=== PATIENT | female | born 1950 | race Caucasian/White ===

== ENCOUNTER 2023-12-08 07:04 | Inpatient (IN) | payer MEDICARE, BC ==
[~2023-12-08] VITALS: Ht 157.5 cm; Wt 107.1 kg
[2023-12-08] MEDS ORDERED: Mag/Al Hydrox/Simeth Susp 30 ML CUP PO ONE (07:45)
[2023-12-08] MEDS ORDERED: Iohexol 300 - 100 ML VIAL IV ONE (07:56)
[2023-12-08] MEDS ORDERED: NS 100 ML IV SCH (07:57)
[2023-12-08] MEDS ORDERED: Oxymetazoline 0.05% Nasal Spray 30 ML BOTTLE NS ONE (09:00)
[2023-12-08] MEDS ORDERED: dexAMETHasone 10 MG/ML VIAL IV ONE (10:15)
[2023-12-08] MEDS ORDERED: fentaNYL 50 MCG/ML 2 ML VIAL IV ONE (10:45)
[2023-12-08] MEDS ORDERED: CADUET 10 MG-801 TAB PO (11:09)
[2023-12-08] MEDS ORDERED: DIOVAN 80MG80 MG PO (11:10)
[2023-12-08] MEDS ORDERED: PROTONIX 40MG T40 MG PO (11:10)
[2023-12-08] MEDS ORDERED: [UNRECOGNIZED DRUG - REMARK] IH SCH (11:11)
[2023-12-08] MEDS ORDERED: SYNTHROID0.1 MG/TAB PO (11:12)
[2023-12-08] MEDS ORDERED: DETROL LA 2 MG2 MG PO (11:12)
[2023-12-08] MEDS ORDERED: [UNRECOGNIZED DRUG - OTHER] SQ (11:12)
[2023-12-08] MEDS ORDERED: *Potassium Replacement Protocol MC SCH (11:15)
[2023-12-08] MEDS ORDERED: SYNTHROID0.05 MG/TA PO (11:40)
[2023-12-08 13:00] VITALS: BP_SYST 120
[2023-12-08 13:29] VITALS: BP 112/32; PULSE 65; TEMP 98.1
--- NOTE | 2023-12-08 13:29 | NUR ---
Reviewed initial assessment and intake agree with DULCE Woo's documentation.
--- NOTE | 2023-12-08 13:30 | NUR ---
SHIFT ASSESSMENT COMPLETED AT THIS TIME. PT A&OX4. PT DENIES PAIN AND NAUSEA BUT REPORTS SOB. PT IS ON 2L/NC. VSS- SEE FLOWSHEET. PT RESTING IN BED. INT C,D,I TO RIGHT HAND. COVID PRECAUTIONS IN PLACE. PT LUNCH ORDERED. CALLL LIGHT WITHIN REACH. NO FURTHER NEEDS AT THIS TIME.
[2023-12-08] MEDS ORDERED: Albuterol 90 MCG/PUFF 8 GM MDI IH SCH (14:00)
[2023-12-08] MEDS ORDERED: amLODIPine 10 MG TAB PO SCH (15:59)
[2023-12-08] MEDS ORDERED: NS 1,000 ML IV SCH (16:00)
[2023-12-08 16:40] VITALS: BP 115/62; PULSE 74; TEMP 97.4
[2023-12-08 16:50] LABS: HEMATOCRIT 43.1 % (37.0-47.0); HEMOGLOBIN 14.9 g/dl (12.5-16.0); MEAN CELL VOLUME 92 fl (80.0-100.0); MEAN CORPUSCULAR HEMOGLOBIN 32 pg (27-31); MEAN CORPUSCULAR HGB CONC 35 g/dl (33.0-37.0); PLATELET COUNT 191 K/mm3 (130-400); RED BLOOD COUNT 4.69 M/mm3 (4.10-5.30); REDCELL DISTRIBUTION WIDTH-CV 13.3 % (11.5-14.5)
[2023-12-08 17:05] VITALS: BP_SYST 115
[2023-12-08 17:14] LABS: CALCIUM 9.3 mg/dL (8.4-10.2); CREATININE, serum 0.85 mg/dL (0.57-1.11); POTASSIUM 4.5 mEq/L (3.5-4.5)
[2023-12-08 20:15] VITALS: BP 118/71; PULSE 80; TEMP 98.3
[2023-12-08 20:30] VITALS: BP_SYST 118
--- NOTE | 2023-12-08 21:00 | NUR ---
UPON SHIFT ASSESSMENT, PAOLA WAS AWAKE IN BED AND AX0 X4. VS ARE CURRENTLY WITHIN NORMAL LIMITS AND WOB IS ALSO WNL. TELE IS NS AT 66 BPM. 75ML/HR NS RUNNING IN 80 RT HAND IV. PATIENT INDEPENDENT AND UP TO RESTROOM URINATING. PATIENT REQUESTED NOT TO BE DISTURBED THROUGHOUT THE NIGHT. EDUCATION PROVIDED THAT VITAL SIGNS ARE NECESSARY FOR COVID PATIENTS ON 02 THERAPY. PATIENT AGREEABLE TO Q4HR VITALS. CALL LIGHT WITHIN REACH.
[2023-12-09] VITALS (14 sets, daily range): BP systolic 92–133; BP diastolic 51–83; PULSE 60–83; TEMP 97.6–98.5
[2023-12-09 06:08] LABS: BASO % 0.1 % (0.0-2.0); GRAN # 5.9 K/mm3 (1.4-6.5); GRAN % 73.8 % (42.2-75.2); HEMATOCRIT 39.2 % (37.0-47.0); HEMOGLOBIN 13.3 g/dl (12.5-16.0); LYMPH # 1.3 K/mm3 (1.2-3.4); LYMPH % 16.9 % (20.0-51.0); MEAN CELL VOLUME 94 fl (80.0-100.0); MEAN CORPUSCULAR HEMOGLOBIN 32 pg (27-31); MEAN CORPUSCULAR HGB CONC 34 g/dl (33.0-37.0); MEAN PLATELET VOLUME 10.1 fl (7.4-10.4); MONO # 0.7 K/mm3 (0.1-0.6); MONO % 8.7 % (1.7-9.3); PLATELET COUNT 190 K/mm3 (130-400); RED BLOOD COUNT 4.17 M/mm3 (4.10-5.30); REDCELL DISTRIBUTION WIDTH-CV 13.2 % (11.5-14.5)
[2023-12-09 06:22] LABS: ALBUMIN 2.9 g/dL (3.4-4.8); CALCIUM 8.9 mg/dL (8.4-10.2); CREATININE, serum 0.73 mg/dL (0.57-1.11); PHOSPHOROUS 3.4 mg/dL (2.3-4.7); POTASSIUM 4.2 mEq/L (3.5-4.5)
--- NOTE | 2023-12-09 08:20 | NUR ---
PATIENT RESTING IN BED UPON ENTERING ROOM. MORNING MEDICATIONS ADMINISTERED PER eMAR. SHIFT ASSESSMENT COMPLETED. PATIENT REPORTS MILD PAIN TO HER UPPER ABDOMEN "UNDER HER BREASTS." SHE REPORTS THAT SHE HAS BEEN ABLE TO EAT, DRINK, AND USE THE RESTROOM NORMAL. PATIENT IS ON 1L O2 VIA NC. IVF INFUSING. UPDATED PATIENT ON PLAN OF CARE. CALL LIGHT WITHIN REACH. WILL CONTINUE TO MONITOR.
[2023-12-09] MEDS ORDERED: dexAMETHasone 4 MG TAB PO SCH (09:00)
[2023-12-09] MEDS ORDERED: Fluticasone Furoate 100 MCG/Inhalation INHALER IH SCH (09:00)
--- NOTE | 2023-12-09 11:09 | NUR ---
SW attempted to meet with patient to complete initial assessment for discharge planning. Patient is Covid +, SW called patient's phone to complete assessment due to patient being in isolation. Patient's Gab ([phone]) answered phone and verified information. Patient and live in [place], [place], patient sees Dr. Joseluis Wing as her PCP and they use [facility] in [place] without difficulty. Patient does not require any DME at home. She has not completed a DPOA at this time. Patient plans to return home at discharge. Discharge plan: Home
[2023-12-09] MEDS ORDERED: guaiFENesin ER 600 MG **** subs to guaiFENesin 200 MG PO SCH (13:36)
[2023-12-09] MEDS ORDERED: Furosemide 20 MG TAB PO ONE (13:45)
--- NOTE | 2023-12-09 13:56 | NUR ---
Data: Patient accepted prayer offered during Perinatal Coordinator rounds. Patient is on precautions. Assessment: Patient acceptive of prayer. Plan of Care: Perinatal Coordinator prayed for Patient outside room. Chaplains will remain available as needed/requested while Patient is admitted to this hospital.
[2023-12-09] MEDS ORDERED: Benzonatate 100 MG CAP PO SCH ×2 (14:00→21:00)
[2023-12-09] MEDS ORDERED: guaiFENesin 200 MG TAB PO SCH (14:00)
--- NOTE | 2023-12-09 20:00 | NUR ---
[facility]ED TO [facility]. PATIENT REQUESTING HALLS COUGH DROPS FOR THROAT IRRITATION. PATIENT ALSO EXHIBITING YELLOW THICK SPUTUM. TORB FOR LOZENGES AND SPUTUM CULTURE GIVEN.
[2023-12-09] MEDS ORDERED: Menthol Cough/Sore Throat LOZENGE MM PRN (20:15)
--- NOTE | 2023-12-09 20:30 | NUR ---
UPON SHIFT ASSESSMENT, APRIL WAS AWAKE IN BED A&O X 4 WITH 1.5 NC O2. PATIENT DENIES SOA OR CHEST PAIN. YELLOW PHLEGM FILLED TISSUES NOTED BEDSIDE. PATIENT HAS FINE CRACKLES IN UPPER LOBES THAT CLEAR WITH COUGH. VS ARE WNL AND TELE IS CURRENTLY NS. PATIENT STATES NO NEEDS AT THIS TIME. CALL LIGHT WITHIN REACH.
[2023-12-10] VITALS (7 sets, daily range): BP systolic 98–107; BP diastolic 58–66; PULSE 58–71; TEMP 97.7–98.2
--- NOTE | 2023-12-10 01:45 | NUR ---
CALLED TO PATIENT'S ROOM. PAOLA STATES O2 NC HAS BEEN LEAKING ALL DAY AND IT HAS BEEN CHECKED SEVERAL TIMES BY STAFF. THIS NURSE INSPECTED CONNECTION SITE AN NO CONNECTOR DEVICE NOTED. CONNECTION INSTALLED AND O2 FLOW PATENT WITH NO LEAKING. REASSESSED O2 SAT AND PATIENT AT 96%, REDUCED 02 TO 0.5L.
[2023-12-10 06:54] LABS: BASO % 0.2 % (0.0-2.0); GRAN # 10.4 K/mm3 (1.4-6.5); GRAN % 78.3 % (42.2-75.2); HEMATOCRIT 39.5 % (37.0-47.0); HEMOGLOBIN 13.4 g/dl (12.5-16.0); LYMPH % 14.9 % (20.0-51.0); MEAN CELL VOLUME 94 fl (80.0-100.0); MEAN CORPUSCULAR HEMOGLOBIN 32 pg (27-31); MEAN CORPUSCULAR HGB CONC 34 g/dl (33.0-37.0); MEAN PLATELET VOLUME 10.3 fl (7.4-10.4); MONO # 0.8 K/mm3 (0.1-0.6); MONO % 5.7 % (1.7-9.3); PLATELET COUNT 212 K/mm3 (130-400); RED BLOOD COUNT 4.21 M/mm3 (4.10-5.30); REDCELL DISTRIBUTION WIDTH-CV 13.4 % (11.5-14.5)
[2023-12-10 07:08] LABS: ALBUMIN 2.9 g/dL (3.4-4.8); CALCIUM 8.6 mg/dL (8.4-10.2); CREATININE, serum 0.75 mg/dL (0.57-1.11); MAGNESIUM 1.9 mg/dL (1.6-2.6); PHOSPHOROUS 3.1 mg/dL (2.3-4.7); POTASSIUM 4.4 mEq/L (3.5-4.5)
--- NOTE | 2023-12-10 09:28 | NUR ---
PATIENT RESTING IN BED UPON ENTERING ROOM. MORNING MEDICATIONS ADMINISTERED. SHIFT ASSESSMENT COMPLETED. PATIENT DENIES ANY PAIN THIS MORNING. THIS RN REMOVED OXYGEN, O2 SATURATION RECHECKED 10 MINUTES LATER AND FOUND TO BY AT 92%. THIS RN WILL LEAVE OXYGEN OFF FOR NOW AND CONTINUE TO MONITOR. PATIENT UPDATED ON PLAN OF CARE. CALL LIGHT WITHIN REACH.
[2023-12-10] MEDS ORDERED: TESSALON P100 MG/CAP PO (12:53)
[2023-12-10] MEDS ORDERED: MUCUS RELIEF200 MG PO (12:54)
[2023-12-10] MEDS ORDERED: DECADRON6 MG PO (12:54)
--- NOTE | 2023-12-10 14:02 | NUR ---
DISCHARGE INSTRUCTIONS REVIEWED, AT BEDSIDE, ALL QUESTIONS ANSWERED. PATIENT REQUESTS THIS RN FAX RECORDS TO PCP AND GI DOCTOR. IV REMOVED. TELEMETRY REMOVED. PATIENT ESCORTED OFF OF UNIT BY VIA ARY STAFF. LEFT VIA PRIVATE VEHICLE WITH .
== END 2023-12-10 14:18 | disposition home or self-care (01) | DRG 177 ==
LOC: COL.ER 07:04 → MEDICAL 11:05
PROVIDERS: ADMIT Internal Medicine
DX: U07.1 COVID-19 (principal); J12.82 Pneumonia due to coronavirus disease 2019; J96.01 Acute respiratory failure with hypoxia; D84.9 Immunodeficiency, unspecified; K50.90 Crohn's disease, unspecified, without complications; I10 Essential (primary) hypertension; E78.5 Hyperlipidemia, unspecified; K21.9 Gastro-esophageal reflux disease without esophagitis; E03.9 Hypothyroidism, unspecified; Z79.890 Hormone replacement therapy; Z90.710 Acquired absence of both cervix and uterus; Z90.89 Acquired absence of other organs; Z90.49 Acquired absence of other specified parts of digestive tract; Z79.899 Other long term (current) drug therapy
CPT/HCPCS: J1100; J1650; J3010; J7030; J8540; Q3014; Q9967